=== PATIENT | female | born 1960 | race Caucasian/White ===

== ENCOUNTER 2020-07-15 23:17 | Emergency (ER) | payer BC ==
--- NOTE | 2020-07-15 23:41 | EDM.PDOC ---
ED HPI GENERAL MEDICAL PROBLEM - General Chief Complaint: Respiratory Problem Stated Complaint: STOMACH PAIN FEVER HAD SINIUS INFECTION NOT BETTER Time Seen by Provider: 07/15/20 23:40 Source of Information: Reports: Patient History Limitations: Reports: No Limitations - History of Present Illness INITIAL COMMENTS - FREE TEXT/NARRATIVE: 60-year-old female presents to the ED for evaluation of generalized illness. The history suggests she became ill approximately Thursday number 28th. She works at [employer] and various personnel have come down with a COVID-19 illness. She states it started out as a sinus infection/congestion which is common for her. Associated sore throat. Then developed into a cough productive of whitish and occasionally yellow sputum. Gradually increasing shortness of breath particular the last 48 hours. Associated diffuse abdominal discomfort with diarrhea 5-6 times per day mostly dark brownish in color. Loose and watery. No blood. She has pressure in the pit of her stomach retrosternal area for the last couple of days not improved with burping or belching. She has no known history of coronary artery disease. She recognize she has been having a fever and some chills more at the initial onset of onset than now. Continues to have a dry nonproductive cough. Diffuse headache that is worsened by coughing. Generalized fatigue and generalized myalgia. Markedly decreased appetite. Generalized weakness. All of the symptoms of COVID-19 illness. Onset: Gradual Onset Date: 07/09/20 Duration: Day(s):, Constant, Getting Worse Location: Reports: Chest (Paroxysmal nonproductive cough. Shortness of breath on minimal exertion.), Generalized (Generalized myalgia), Other ( associate with anorexia loss of appetite. Area 5-6 times per day usually dark in color and loose. Pressure discomfort in the pit of her stomach not relieved by burping or belching.) Quality: Reports: Ache (Neurolyse myalgia.) Severity: Moderate (Prominent headache) Improves with: Reports: None ( noted 10), Rest (With movement or activity) Worsens with: Reports: Movement Context: Reports: Sick Contact (Possibly at the workplace at [employer]). Denies: Activity, Exercise, Lifting, Trauma, Other Associated Symptoms: Reports: Cough, cough w sputum, Diaphoresis, Fever/Chills, Headaches, Loss of Appetite, Malaise (Mostly white but some occasional yellow sputum), Nausea/Vomiting, Shortness of Breath, Weakness, Other (Diarrhea with 5- 6 loose dark stools per day). Denies: Rash, Seizure Treatments ANALYTICAL SCIENCES DIRECTOR: Reports: Other (see below) (None.) - Related Data Allergies Allergy/AdvReac Type Severity Reaction Status Date / Time codeine Allergy Tachycardia Verified 07/15/20 23:32 Home Meds: Home Meds Cetirizine [ZyrTEC] 10 mg PO DAILY 07/15/20 [History] Losartan [Cozaar] 12.5 mg PO DAILY 07/15/20 [History] dexAMETHasone [Dexamethasone] 6 mg PO BID #9 tab 07/16/20 [Rx] Past Medical History HEENT History: Reports: Allergic Rhinitis Cardiovascular History: Reports: Hypertension Social & Family History - Living Situation & Occupation Living situation: Reports: Single Occupation: Employed (Currently an employee of [employer].) ED ROS GENERAL - Review of Systems Review Of Systems: See Below Constitutional: Reports: Fever, Chills, Malaise, Weakness, Fatigue, Decreased Appetite, Weight Loss HEENT: Reports: Glasses, Sinus Problem, Throat Pain (Recurrent problems with sinusitis nasal congestion.) Respiratory: Reports: Shortness of Breath, Cough, Sputum (Sputum has been white to slightly yellow-tinged.). Denies: Wheezing, Pleuritic Chest Pain Cardiovascular: Reports: Chest Pain (Pressure in the pit of her stomach.), Blood Pressure Problem, Dyspnea on Exertion, Lightheadedness. Denies: Claudication, Edema Endocrine: Reports: Fatigue GI/Abdominal: Reports: Abdominal Pain (5-6 loose stools per day mostly dark in color no blood), Diarrhea, Decreased Appetite ( pain in the pit of her stomach.), Nausea (With occasional nausea.). Denies: Difficulty Swallowing, Distension, Flatus, Hematemesis, Hematochezia, Stool Incontinence, Vomiting : Reports: No Symptoms Musculoskeletal: Reports: Muscle Pain (Neurolyse myalgia particularly large joints low back knees thighs neck) Skin: Reports: No Symptoms Neurological: Reports: No Symptoms Psychiatric: Reports: No Symptoms Hematologic/Lymphatic: Reports: No Symptoms Immunologic: Reports: No Symptoms ED EXAM, GENERAL - Physical Exam Exam: See Below Exam Limited By: No Limitations General Appearance: Alert, WD/WN, No Apparent Distress, Other (Appears flushed. She does feel mildly warm palpation temperatures is recorded by nursing staff at 36.0. Heart rate 100 respiratory 17 with O2 sats of 90% room air BP elevated 1 8889) Eye Exam: Bilateral Eye: Normal Inspection (Scleral icterus or blepharal pallor), PERRL Ears: Normal TMs Throat/Mouth: Normal Inspection, Normal Lips, Normal Oropharynx, Other Head: Atraumatic (Is mildly dry and coated), Normocephalic Neck: Normal Inspection, Supple, Non-Tender, Full Range of Motion. No: Lymphadenopathy (L), Lymphadenopathy (R) Respiratory/Chest: No Respiratory Distress, Lungs Clear, Normal Breath Sounds, No Accessory Muscle Use, Other (Quick paroxysmal cough with deep inspiration.) Cardiovascular: Regular Rate, Rhythm, No Edema, No Gallop, No Rub Peripheral Pulses: 2+: Posterior Tibial (L), Posterior Tibial (R), Dorsalis Pedis (L), Dorsalis Pedis (R), 3+: Carotid (L), Carotid (R) GI/Abdominal: Normal Bowel Sounds, Soft, Non-Tender, No Organomegaly, No Abnormal Bruit, No Mass, Pelvis Stable, Other (Elderly obese.) Back Exam: Normal Inspection, Full Range of Motion. No: CVA Tenderness (L), CVA Tenderness (R) Extremities: Normal Inspection, Normal Range of Motion, No Pedal Edema, Normal Capillary Refill Neurological: Alert, Oriented, CN II-XII Intact, Normal Cognition Psychiatric: Normal Affect, Normal Mood Skin Exam: Warm, Dry, Intact, Normal Color, No Rash EKG INTERPRETATION EKG Date: 07/16/20 Time: 00:21 Rhythm: NSR Rate (Beats/Min): 94 Davis: LAD-Left Davis Deviation (Left axis deviation of -20 degrees.) P-Wave: Enlarged (Left atrial hypertrophy pattern) QRS: Other (Near Q waves V1 to V3 initial poor R wave progression versus old anterior septal myocardial infarction.) ST-T: Normal QT: Normal EKG Interpretation Comments: Borderline ECG .No signs of ischemia Course - Vital Signs Last Recorded V/S: Last Vital Signs Temp 36.0 C L 07/15/20 23:32 Pulse 100 07/15/20 23:32 Resp 17 07/15/20 23:32 BP 188/89 H 07/15/20 23:32 Pulse Ox 90 L 07/15/20 23:32 - Orders/Labs/Meds Orders: Active Orders 24 hr Category Date Time Status Chest 1V Frontal [CR] Stat Exams 07/16/20 00:06 Taken Labs: Laboratory Tests 07/16/20 07/16/20 07/16/20 Range/Units 00:18 00:18 00:18 WBC 2.96 L (3.98-10.04) K/mm3 RBC 4.95 (3.98-5.22) M/mm3 Hgb 14.6 (11.2-15.7) gm/dl Hct 45.4 H (34.1-44.9) % MCV 91.7 (79.4-94.8) fl MCH 29.5 (25.6-32.2) pg MCHC 32.2 (32.2-35.5) g/dl RDW Std Deviation 46.0 (36.4-46.3) fL Plt Count 319 (182-369) K/mm3 MPV 10.1 (9.4-12.3) fl Neut % (Auto) 64.6 (34.0-71.1) % Lymph % (Auto) 26.7 (19.3-51.7) % [place] % (Auto) 8.4 (4.7-12.5) % Eos % (Auto) 0 L (0.7-5.8) Baso % (Auto) 0.3 (0.1-1.2) % Neut # (Auto) 1.91 (1.56-6.13) K/mm3 Lymph # (Auto) 0.79 L (1.18-3.74) K/mm3 [place] # (Auto) 0.25 (0.24-0.36) K/mm3 Eos # (Auto) 0.00 L (0.04-0.36) K/mm3 Baso # (Auto) 0.01 (0.01-0.08) K/mm3 Manual Slide Review Abnormal smear PT 10.9 (9.7-11.7) SECONDS INR 1.02 APTT (22-31) SECONDS D-Dimer, Quantitative (0.19-0.50) mg/L Sodium 136 (136-145) mEq/L Potassium 3.8 (3.5-5.1) mEq/L Chloride 98 (98-107) mEq/L Carbon Dioxide 28 (21-32) mEq/L Anion Gap 13.8 (5-15) BUN 16 (7-18) mg/dL Creatinine 0.9 (0.55-1.02) mg/dL Est Cr Clr Drug Dosing 67.73 mL/min Estimated GFR (MDRD) > 60 (>60) mL/min BUN/Creatinine Ratio 17.8 (14-18) Glucose 132 H (80-115) mg/dL Lactic Acid (0.4-2.0) mmol/L Calcium 8.9 (8.5-10.1) mg/dL Magnesium 2.0 (1.8-2.4) mg/dl Ferritin (8-252) ng/ml Total Bilirubin 1.0 (0.2-1.0) mg/dL AST 94 H (15-37) U/L ALT 101 H (14-59) U/L Alkaline Phosphatase 124 H (46-116) U/L Lactate Dehydrogenase 370 H (81-234) U/L CK-MB (CK-2) < 0.5 (0-3.6) ng/ml Troponin I < 0.017 (0.00-0.056) ng/mL C-Reactive Protein 1.5 H* (<1.0) mg/dL NT-Pro-B Natriuret Pep (0-125) pg/mL Total Protein 7.8 (6.4-8.2) g/dl Albumin 3.9 (3.4-5.0) g/dl Globulin 3.9 gm/dL Albumin/Globulin Ratio 1.0 (1-2) SARS-CoV-2 RNA (TATIANA) (NEGATIVE) 07/16/20 07/16/20 07/16/20 Range/Units 00:18 00:18 00:18 WBC (3.98-10.04) K/mm3 RBC (3.98-5.22) M/mm3 Hgb (11.2-15.7) gm/dl Hct (34.1-44.9) % MCV (79.4-94.8) fl MCH (25.6-32.2) pg MCHC (32.2-35.5) g/dl RDW Std Deviation (36.4-46.3) fL Plt Count (182-369) K/mm3 MPV (9.4-12.3) fl Neut % (Auto) (34.0-71.1) % Lymph % (Auto) (19.3-51.7) % [place] % (Auto) (4.7-12.5) % Eos % (Auto) (0.7-5.8) Baso % (Auto) (0.1-1.2) % Neut # (Auto) (1.56-6.13) K/mm3 Lymph # (Auto) (1.18-3.74) K/mm3 [place] # (Auto) (0.24-0.36) K/mm3 Eos # (Auto) (0.04-0.36) K/mm3 Baso # (Auto) (0.01-0.08) K/mm3 Manual Slide Review PT (9.7-11.7) SECONDS INR APTT 32 H (22-31) SECONDS D-Dimer, Quantitative 0.46 (0.19-0.50) mg/L Sodium (136-145) mEq/L Potassium (3.5-5.1) mEq/L Chloride (98-107) mEq/L Carbon Dioxide (21-32) mEq/L Anion Gap (5-15) BUN (7-18) mg/dL Creatinine (0.55-1.02) mg/dL Est Cr Clr Drug Dosing mL/min Estimated GFR (MDRD) (>60) mL/min BUN/Creatinine Ratio (14-18) Glucose (80-115) mg/dL Lactic Acid (0.4-2.0) mmol/L Calcium (8.5-10.1) mg/dL Magnesium (1.8-2.4) mg/dl Ferritin (8-252) ng/ml Total Bilirubin (0.2-1.0) mg/dL AST (15-37) U/L ALT (14-59) U/L Alkaline Phosphatase (46-116) U/L Lactate Dehydrogenase (81-234) U/L CK-MB (CK-2) (0-3.6) ng/ml Troponin I (0.00-0.056) ng/mL C-Reactive Protein (<1.0) mg/dL NT-Pro-B Natriuret Pep 80 (0-125) pg/mL Total Protein (6.4-8.2) g/dl Albumin (3.4-5.0) g/dl Globulin gm/dL Albumin/Globulin Ratio (1-2) SARS-CoV-2 RNA (TATIANA) (NEGATIVE) 07/16/20 07/16/20 07/16/20 Range/Units 00:18 00:18 00:21 WBC (3.98-10.04) K/mm3 RBC (3.98-5.22) M/mm3 Hgb (11.2-15.7) gm/dl Hct (34.1-44.9) % MCV (79.4-94.8) fl MCH (25.6-32.2) pg MCHC (32.2-35.5) g/dl RDW Std Deviation (36.4-46.3) fL Plt Count (182-369) K/mm3 MPV (9.4-12.3) fl Neut % (Auto) (34.0-71.1) % Lymph % (Auto) (19.3-51.7) % [place] % (Auto) (4.7-12.5) % Eos % (Auto) (0.7-5.8) Baso % (Auto) (0.1-1.2) % Neut # (Auto) (1.56-6.13) K/mm3 Lymph # (Auto) (1.18-3.74) K/mm3 [place] # (Auto) (0.24-0.36) K/mm3 Eos # (Auto) (0.04-0.36) K/mm3 Baso # (Auto) (0.01-0.08) K/mm3 Manual Slide Review PT (9.7-11.7) SECONDS INR APTT (22-31) SECONDS D-Dimer, Quantitative (0.19-0.50) mg/L Sodium (136-145) mEq/L Potassium (3.5-5.1) mEq/L Chloride (98-107) mEq/L Carbon Dioxide (21-32) mEq/L Anion Gap (5-15) BUN (7-18) mg/dL Creatinine (0.55-1.02) mg/dL Est Cr Clr Drug Dosing mL/min Estimated GFR (MDRD) (>60) mL/min BUN/Creatinine Ratio (14-18) Glucose (80-115) mg/dL Lactic Acid 0.9 (0.4-2.0) mmol/L Calcium (8.5-10.1) mg/dL Magnesium (1.8-2.4) mg/dl Ferritin 645 H (8-252) ng/ml Total Bilirubin (0.2-1.0) mg/dL AST (15-37) U/L ALT (14-59) U/L Alkaline Phosphatase (46-116) U/L Lactate Dehydrogenase (81-234) U/L CK-MB (CK-2) (0-3.6) ng/ml Troponin I (0.00-0.056) ng/mL C-Reactive Protein (<1.0) mg/dL NT-Pro-B Natriuret Pep (0-125) pg/mL Total Protein (6.4-8.2) g/dl Albumin (3.4-5.0) g/dl Globulin gm/dL Albumin/Globulin Ratio (1-2) SARS-CoV-2 RNA (TATIANA) Positive H (NEGATIVE) Meds: Medications Discontinued Medications Generic Name Dose Route Start Last Admin Trade Name Mayi PRN Reason Stop Dose Admin Dexamethasone 6 mg 07/16/20 01:45 07/16/20 02:11 Dexamethasone IVPUSH 07/16/20 01:46 6 mg ONETIME ONE Administration Dextrose/Sodium Chloride 1,000 mls @ 999 mls/hr 07/16/20 00:15 07/16/20 00:19 Dextrose 5%-Normal Saline IV 999 mls/hr ASDIRECTED LARA Administration - Radiology Interpretation Free Text/Narrative:: 60-year-old female presents to the ED with a history of sinus congestion developing sore throat followed by development of cough and sputum production with generalized myalgia, headache and loss of appetite with diarrhea over the last 6 days. Clinically she has all the signs and symptoms of COVID-19 illness. O2 sats are 92% room air. BP slightly elevated 1 8592. Heart rate was 95 and sinus. Routine COVID-19 labs to be obtained including ferritin, LDH, d-dimer. ECG as well. Chest x-ray of course. She will be given IV D5 normal saline at open. - Re-Assessments/Exams Free Text/Narrative Re-Assessment/Exam: 07/16/20 01:00: X-ray done portably reveals a poor inspiratory effort. Cardiac silhouette is upper limits of normal. There is a mildly tortuous thoracic aorta. No definitive infiltrates apparent in either lung field. Visible pneumothorax. No significant pleural effusions. There is mild elevation of the right time hemidiaphragm. 07/16/20 01:35 White blood cell count is low at 2.96. The differential shows 65% neutrophils. Hemoglobin is 14.6 with hematocrit of 45.4. MCV is normal at 91.7. Platelet count 319,000. The slide shows leukocytopenia and no banded neutrophils identified. PT is 10.9 with an INR of 1.02. D-dimer is 0.46. Sodium 136 with a potassium of 3.8. Chloride 98 with a bicarb of 28. Anion gap is 13.8. BUN is 16 with a creatinine of 0.9. GFR is greater than 60. Glucose is slightly elevated 132. Lactic acid is 0.9. Calcium is 8.9. Magnesium 2.0. Ferritin elevated at 645. Total bilirubin 1.0 with a AST slightly elevated at 94 and an ALT elevated at 101. Alk phos days is 124. LDH is elevated at 370. CK-MB is 0.5 and troponin I is less than 0.017. C-reactive protein is minimally elevated at 1.5. BNP is 80. Total protein 7.8 with a albumin fraction of 3.9. COVID-19 screen is positive. O2 sats are ranging between 92 and 95%. 07/16/20 01:44 given a dose of dexamethasone 6 mg IV bolus. The plan will be to discharge her home on dexamethasone 6 mg twice daily orally for the next 5 days. Note will be given to excuse her from the workplace for the next 12 days due to COVID-19 illness. She will follow-up with her personal care physician if any further problems occur. Departure - Departure Time of Disposition: 01:21 Disposition: Home, Self-Care 01 Condition: Fair Clinical Impression: COVID-19 determined by clinical diagnostic criteria, Cough in adult patient, Diarrhea due to COVID-19 - Discharge Information *PRESCRIPTION DRUG MONITORING PROGRAM REVIEWED*: Not Applicable *COPY OF PRESCRIPTION DRUG MONITORING REPORT IN PATIENT [place]: Not Applicable Prescriptions: dexAMETHasone [Dexamethasone] 6 mg PO BID #9 tab Instructions: COVID-19, Cough, Adult, [id number], Diarrhea, Adult, [id number] Referrals: PCP,Not In Area [Primary Care Provider] - Forms: ED Department Discharge, ED Return to Work/School Form Additional Instructions: Evaluation in the emergency room today in regards to generalized illness with persistent diarrhea, loss of appetite. Mild cough headache generalized body ache. These are all symptoms of COVID-19 illness. Testing proved that you are COVID-19 positive. By history your illness started on July 10. You are supposed to self quarantine for 2 weeks from the time of diagnosis. You will not likely feel like going to work next Thursday and I would suggest that you take at least 10 days off from today before considering go back to work. Continue Motrin 600 mg every 6 hours or Tylenol 650 mg every 4 hours for pain, headache and body ache relief. Avoid all dairy products and no apple juice or grape juice until stools are formed back up. Diet otherwise as tolerated. Suggest Gatorade or Powerade 20 ounces at least once daily to maintain electrolyte balance instead of just drinking water or alone. Should avoid coffee and tea due to the caffeine content causing increased bowel movements. Medication is to be dexamethasone 6 mg tablet with breakfast and supper for the next 4 days. Initial dose of dexamethasone was given intravenously while you were in the ED this morning. You will need a 6 mg tablet after suppertime tonight. - My Orders Last 24 Hours: My Active Orders 07/16/20 00:06 Chest 1V Frontal [CR] Stat - Assessment/Plan Last 24 Hours: My Active Orders 07/16/20 00:06 Chest 1V Frontal [CR] Stat
[2020-07-16] MEDS ORDERED: Dextrose 5%-0.9% NaCl 1,000 ML IV SCH (00:15)
[2020-07-16] MEDS ORDERED: Dexamethasone 10 MG/ML SDV IVPUSH ONE (01:45)
--- NOTE | 2020-08-15 10:26 | CR ---
PROCEDURE INFORMATION: Exam: XR Chest, 1 View Exam date and time: 07/16/2020 12:11 AM Age: 60 years old Clinical indication: Cough and shortness of breath TECHNIQUE: Imaging protocol: XR of the chest Views: 1 view. COMPARISON: No relevant prior studies available. FINDINGS: Lungs: Moderate elevation of right hemidiaphragm with right infrahilar/perihilar vascular crowding and compressive atelectasis. No acute focal dense air space consolidation or lung parenchymal mass. Pleural space: No pneumothorax. No large right pleural effusion. No large left pleural effusion. Heart/Mediastinum: Unremarkable cardiac silhouette. No mediastinal mass. Vasculature: Atheromatous calcifications of aorta. Bones/joints: No acute fracture or neoplastic osseous lesion. IMPRESSION: 1. No active cardiopulmonary disaese. 2. Remainder of findings described as above. Thank you for allowing us to participate in the care of your patient. Dictated and Authenticated by: Chin Ziegler MD 08/14/2020 11:41 PM Central Time ([place] & [place]) [place]
== END 2020-07-16 02:23 | disposition home or self-care (01) ==
LOC: JD.ED 23:17
DX: U07.1 COVID-19 (principal); I10 Essential (primary) hypertension; E66.9 Obesity, unspecified; R79.82 Elevated C-reactive protein (CRP); R74.02 Elevation of levels of lactic acid dehydrogenase [LDH]; R79.89 Other specified abnormal findings of blood chemistry; Z68.39 Body mass index [BMI] 39.0-39.9, adult; Z88.5 Allergy status to narcotic agent; Z79.899 Other long term (current) drug therapy
CPT/HCPCS: 36415; 71045; 80053; 82553; 82728; 83605; 83615; 83735; 83880; 84484; 85025; 85379; 85610; 85730; 86140; 87635; 93005; 96361; 96374; 99284; J1100; J7042; 93010; 99283; U0002

== ENCOUNTER 2021-02-18 17:08 | Emergency (ER) | payer BC ==
[2021-02-18] MEDS ORDERED: Sodium Chloride 0.9% 10 ML Syringe FLUSH PRN (17:37)
[2021-02-18] MEDS ORDERED: Apixaban 5 MG Tab PO ONE (17:48)
--- NOTE | 2021-02-18 18:18 | EDM.PDOC ---
ED HPI GENERAL MEDICAL PROBLEM - General Chief Complaint: Respiratory Problem Stated Complaint: POSS CLOT IN CHEST Time Seen by Provider: 02/18/21 17:21 Source of Information: Reports: Patient History Limitations: Reports: No Limitations - History of Present Illness INITIAL COMMENTS - FREE TEXT/NARRATIVE: The patient presents from the walk in clinic for bilateral pulmonary emboli and shortness of breath. The patient had bilateral knee replacements in early November. She was on eliquis for a month after. She could not take aspirin because if upset her stomach. She started having shortness of breath on and went on a long car ride to [place] the next day. She had more shortness of breath with exertion. She denies any chest pain. She has no fever or chills. She says back in July she had COVID 19. She only had diarrhea and felt weak. She went to the walk in clinic today and they did a COVID 19 test and it was negative. They then did a D-dimer and it was positive at 4. The provider ordered a CT angiogram and it showed multiple bilateral pulmonary emboli with a mild to moderate clot burden. Small amount of infiltrate within the right lower lobe may represent an infarct however an atypical infectious etiology such as COVID could have a similar appearance. The patient's oxygen saturations were above 90% here. She can talk in complete sentences. She does not feel shot of breath at rest. Onset: Gradual Duration: Day(s): Severity: Mild Improves with: Reports: None Worsens with: Reports: None Associated Symptoms: Reports: Shortness of Breath. Denies: Chest Pain, Cough, Fever/Chills, Headaches, Nausea/Vomiting - Related Data Allergies Allergy/AdvReac Type Severity Reaction Status Date / Time codeine Allergy Severe Tachycardia Verified 02/18/21 17:25 Home Meds: Home Meds Losartan [Cozaar] 12.5 mg PO DAILY 07/15/20 [History] Apixaban [Eliquis] 5 mg PO BID #60 tablet 02/18/21 [Rx] Cyclobenzaprine [Flexeril] 10 mg PO TID PRN #20 tab 02/18/21 [Rx] Past Medical History HEENT History: Reports: Allergic Rhinitis Other HEENT History: Wears glasses Cardiovascular History: Reports: Hypertension - Infectious Disease History Infectious Disease History: Reports: Novel Coronavirus - Past Surgical History HEENT Surgical History: Reports: Naso-Sinus Surgery GI Surgical History: Reports: Cholecystectomy Female Surgical History: Reports: Hysterectomy, Salpingo-Oophorectomy Other Female Surgeries/Procedures: Partial hysterectomy with unilateral salpingo-oophrectomy Musculoskeletal Surgical History: Reports: Arthroscopic Knee Social & Family History - Tobacco Use Tobacco Use Status *Q: Never Tobacco User - Recreational Drug Use Recreational Drug Use: No - Living Situation & Occupation Living situation: Reports: Single Occupation: Employed (Currently an employee of [employer]) ED ROS GENERAL - Review of Systems Review Of Systems: See Below Constitutional: Reports: No Symptoms HEENT: Reports: No Symptoms Respiratory: Reports: Shortness of Breath Cardiovascular: Reports: No Symptoms Endocrine: Reports: No Symptoms GI/Abdominal: Reports: No Symptoms : Reports: No Symptoms Musculoskeletal: Reports: No Symptoms ED EXAM, GENERAL - Physical Exam Exam: See Below Exam Limited By: No Limitations General Appearance: Alert, No Apparent Distress Ears: Normal External Exam Nose: Normal Inspection Head: Atraumatic, Normocephalic Neck: Normal Inspection Respiratory/Chest: No Respiratory Distress, Lungs Clear, Normal Breath Sounds Cardiovascular: Regular Rate, Rhythm, No Edema, No Murmur GI/Abdominal: Soft, Non-Tender, No Organomegaly, No Mass Back Exam: Normal Inspection Extremities: Other (Mild pedal edema) Neurological: Alert, Oriented, No Motor/Sensory Deficits #1 Interpretation EKG Date: 02/18/21 Time: 17:48 Rhythm: NSR Rate (Beats/Min): 90 [place]: LAD-Left [place] Deviation P-Wave: Present QRS: Normal ST-T: Normal QT: Normal Course - Vital Signs Last Recorded V/S: Last Vital Signs Temp 97.2 F 02/18/21 17:22 Pulse 106 H 02/18/21 17:22 Resp 24 H 02/18/21 17:22 BP 178/82 H 02/18/21 17:22 Pulse Ox 90 L 02/18/21 17:22 - Orders/Labs/Meds Orders: Active Orders 24 hr Category Date Time Status Cardiac Monitoring [RC] . DIRECTED Care 02/18/21 17:37 Active EKG Documentation Completion [RC] STAT Care 02/18/21 17:38 Active Peripheral IV Insertion Adult [OM.PC] Stat Oth 02/18/21 17:37 Ordered Labs: Laboratory Tests 02/18/21 02/18/21 02/18/21 Range/Units 17:55 17:55 17:55 WBC 9.61 (3.98-10.04) K/mm3 RBC 4.44 (3.98-5.22) M/mm3 Hgb 12.7 D (11.2-15.7) gm/dl Hct 40.1 (34.1-44.9) % MCV 90.3 (79.4-94.8) fl MCH 28.6 (25.6-32.2) pg MCHC 31.7 L (32.2-35.5) g/dl RDW Std Deviation 45.3 (36.4-46.3) fL Plt Count 387 H (182-369) K/mm3 MPV 10.7 (9.4-12.3) fl Neut % (Auto) 67.2 (34.0-71.1) % Lymph % (Auto) 25.6 (19.3-51.7) % [place] % (Auto) 5.9 (4.7-12.5) % Eos % (Auto) 0.9 (0.7-5.8) Baso % (Auto) 0.2 (0.1-1.2) % Neut # (Auto) 6.45 H (1.56-6.13) K/mm3 Lymph # (Auto) 2.46 (1.18-3.74) K/mm3 [place] # (Auto) 0.57 H (0.24-0.36) K/mm3 Eos # (Auto) 0.09 (0.04-0.36) K/mm3 Baso # (Auto) 0.02 (0.01-0.08) K/mm3 PT 11.1 (9.7-12.0) SECONDS INR 1.04 APTT 28.7 (21.7-31.4) SECONDS Sodium 143 (136-145) mEq/L Potassium 4.0 (3.5-5.1) mEq/L Chloride 106 (98-107) mEq/L Carbon Dioxide 26 (21-32) mEq/L Anion Gap 15.0 (5-15) BUN 19 H (7-18) mg/dL Creatinine 0.8 (0.55-1.02) mg/dL Est Cr Clr Drug Dosing 76.20 mL/min Estimated GFR (MDRD) > 60 (>60) mL/min BUN/Creatinine Ratio 23.8 H (14-18) Glucose 110 H (70-99) mg/dL Calcium 8.8 (8.5-10.1) mg/dL Total Bilirubin 0.5 (0.2-1.0) mg/dL AST 20 (15-37) U/L ALT 24 (14-59) U/L Alkaline Phosphatase 93 (46-116) U/L Troponin I < 0.017 (0.00-0.056) ng/mL Total Protein 7.0 (6.4-8.2) g/dl Albumin 3.7 (3.4-5.0) g/dl Globulin 3.3 gm/dL Albumin/Globulin Ratio 1.1 (1-2) Meds: Medications Discontinued Medications Generic Name Dose Route Start Last Admin Trade Name Freq PRN Reason Stop Dose Admin Apixaban 10 mg 02/18/21 17:48 Apixaban 5 Mg Tab PO 02/18/21 17:49 ONETIME ONE Sodium Chloride 10 ml 02/18/21 17:37 Sodium Chloride 0.9% 10 Ml Syringe FLUSH ASDIRECTED PRN Keep Vein Open - Re-Assessments/Exams Free Text/Narrative Re-Assessment/Exam: 02/18/21 18:20 Johanna Jain NP at the walk in clinic called [facility] because the patient's doctors are there and they recommended she come to our ER and get a heparin drip and be transported to their hospital. I called [facility] and talked with the hospitalist infrastructure consultant Dr Zhang and we went over the CT results. She is not struggling to breath. He recommended check an EKG and labs and if there is no sign of heart strain she can go home on eliquis. I ordered an EKG and it shows a NSR and labs. I also ordered eliquis 10mg by mouth. 02/18/21 18:33 Her CBC and CMP look good. Her PT and PTT look good. Her troponin is negative. There is no right heart strain. I will discharge her home on eliquis. She also has been having some pain in her lower back. I will get her a muscle relaxer for that. Departure - Departure Time of Disposition: 18:35 Disposition: Home, Self-Care 01 Condition: Good Clinical Impression: Pulmonary embolism Qualifiers: Pulmonary embolism type: other Chronicity: acute Acute cor pulmonale presence: without acute cor pulmonale Qualified Code(s): I26.99 - Other pulmonary embolism without acute cor pulmonale Low back pain Qualifiers: Chronicity: acute Back pain laterality: bilateral Sciatica presence: without sciatica Qualified Code(s): M54.5 - Low back pain - Discharge Information *PRESCRIPTION DRUG MONITORING PROGRAM REVIEWED*: Not Applicable *COPY OF PRESCRIPTION DRUG MONITORING REPORT IN PATIENT [place]: Not Applicable Prescriptions: Apixaban [Eliquis] 5 mg PO BID #60 tablet Cyclobenzaprine [Flexeril] 10 mg PO TID PRN #20 tab PRN Reason: Pain Referrals: PCP,Not In Area [Primary Care Provider] - Forms: ED Department Discharge Additional Instructions: Take the eliquis 10mg or 2 pills 2 times per day for 7 days and then 5mg or 1 pill 2 times per day after that. Take the flexeril every 8 hours as needed for low back pain. Follow up with your doctor within a week. Please return if you are worse such as pain or more shortness of breath. Sepsis Event Note (ED) - Evaluation Sepsis Screening Result: No Definite Risk - Focused Exam Vital Signs: Vital Signs Temp Pulse Resp BP Pulse Ox 02/18/21 17:22 97.2 F 106 H 24 H 178/82 H 90 L - My Orders Last 24 Hours: My Active Orders 02/18/21 17:37 Cardiac Monitoring [RC] . DIRECTED Peripheral IV Insertion Adult [OM.PC] Stat 02/18/21 17:38 EKG Documentation Completion [RC] STAT - Assessment/Plan Last 24 Hours: My Active Orders 02/18/21 17:37 Cardiac Monitoring [RC] . DIRECTED Peripheral IV Insertion Adult [OM.PC] Stat 02/18/21 17:38 EKG Documentation Completion [RC] STAT
== END 2021-02-18 18:45 | disposition home or self-care (01) ==
LOC: JD.ED 17:08
DX: I26.99 Other pulmonary embolism without acute cor pulmonale (principal); M54.5 Low back pain; I10 Essential (primary) hypertension; Z86.16 Personal history of COVID-19; Z88.5 Allergy status to narcotic agent; Z79.899 Other long term (current) drug therapy
CPT/HCPCS: 36415; 80053; 84484; 85025; 85610; 85730; 93005; 99285; A9270; 93010; 99284

== ENCOUNTER 2022-04-22 06:57 | Emergency (ER) | payer BC ==
[2022-04-22] MEDS ORDERED: Oxymetazoline 0.05% Nasal Spray 30 ML Bottle NAS ONE (07:15)
== END 2022-04-22 09:25 | disposition home or self-care (01) ==
LOC: JD.ED 06:57 → SUPCPDRO 06:57 → JD.ED 09:25
DX: R04.0 Epistaxis (principal); I10 Essential (primary) hypertension
CPT/HCPCS: 30901; 36415; 85610; 99283; A9270; C9046